=== PATIENT | male | born 1950 | race African-American/Black ===

== ENCOUNTER 2016-03-30 11:47 | Outpatient (RCR) | payer MEDICARE, OTHER ==
[~2016-03-30] VITALS: Ht 175.3 cm; Wt 81.6 kg
[~2016-03-30 11:47] MED LIST: AMLODIPINE-ATO1 EACH ORAL; CLINDAMYCIN HC300 MG ORAL; GABAPENTIN300 MG ORAL; GLUCOPHAGE1000 MG ORAL; GLYBURIDE5 MG PO; IRON325 M1 PO; JANUVIA50 MG ORAL; KEFLEX500 MG ORAL; LEVEMIR FL100 UNIT/1 SUBQ; METOCLOPRAM5 MG/5 M3 PO; OMEPRAZOLE40 M1 ORAL; SIMVASTATIN10 MG ORAL; STARLIX60 MG ORAL; TAMSULOSIN HCL0.4 MG ORAL
[2016-04-07] MEDS ORDERED: Silver Nitrate Stick TOPIC ONE (17:15)
[2016-04-20] MEDS ORDERED: ZITHROMAX250 MG ORAL (15:15)
[2016-04-20] MEDS ORDERED: GUAIFENESIN1200 MG PO (15:15)
[2016-04-20] MEDS ORDERED: TESSALON PERLE100 MG ORAL (15:15)
[2016-04-20] MEDS ORDERED: CLARITIN10 MG ORAL (15:15)
== END 2016-04-25 | disposition home or self-care (01) ==
LOC: WCC 11:47
DX: L97.812 Non-pressure chronic ulcer of other part of right lower leg with fat layer exposed (principal); E11.9 Type 2 diabetes mellitus without complications; I10 Essential (primary) hypertension; H54.41 Blindness, right eye, normal vision left eye
CPT/HCPCS: 11042; 11045; 82962

== ENCOUNTER 2016-04-20 13:08 | Emergency (ER) | payer MEDICARE, OTHER ==
[~2016-04-20] VITALS: Ht 175.3 cm; Wt 77.1 kg
[2016-04-20 13:41] VITALS: BP 131/57
--- NOTE | 2016-04-20 14:16 | Emergency Room Report ---
History of Present Illness General Chief Complaint: Upper Respiratory Illness Source: Patient (Jennifer Nguyen) Present Illness HPI 65-year-old male presents emergency department complaining of productive cough times one week denies fevers reports chills. Patient's history of asthma in addition to high blood pressure. Patient also states that for approximately one year he has noticed moderate increase in phlegm/mucous production and nasal drainage. Patient denies immunocompromise denies recent upper respiratory illness or ill contacts denies recent travels. Patient denies neck stiffness neck pain or headache. Denies CP, Palpitations, LOC, AMS, dizziness, Changes in Vision, Sensation, paresthesias, or a sudden severe headache. (Jennifer Nguyen) Allergies: Coded Allergies: No Known Allergies (Unverified , 05/27/15) Patient History Past Medical History: see triage record Past Surgical History: none Pertinent Family History: none Immunizations: UTD Reviewed Nursing Documentation: PMH: Agreed, PSxH: Agreed (Jennifer Nguyen) Nursing Documentation-PMH Past Medical History: No History, Except For Hx Hypertension: Yes Hx Diabetes: Yes - right BKA Hx Cancer: No Hx Gastrointestinal Problems: No Hx Weakness: Yes (Jennifer Nguyen) Review of Systems All Other Systems: negative except mentioned in HPI (Jennifer Nguyen) Physical Exam Vital Signs Date Time Temp Pulse Resp B/P Pulse Ox O2 Delivery O2 Flow Rate FiO2 04/20/16 13:25 98.6 72 16 131/57 97 Room Air Sp02 EP Interpretation: reviewed, normal General Appearance: no apparent distress, alert, GCS 15, non-toxic Head: normocephalic, atraumatic Eyes: bilateral eye PERRL, bilateral eye normal inspection ENT: hearing grossly normal, normal pharynx, no angioedema, normal voice, TMs + canals normal, uvula midline, moist mucus membranes, nasal congestion - clear nasal rhinorrhea bilaterally Neck: full range of motion, no meningismus, no bony tend, supple/symm/no masses Respiratory: chest non-tender, lungs clear, normal breath sounds, no rhonchi, no respiratory distress, no retraction, no accessory muscle use, speaking full sentences Cardiovascular #1: regular rate, rhythm, no edema Gastrointestinal: non tender, soft, no guarding, no rebound Rectal: deferred Genitourinary: normal inspection, no CVA tenderness Musculoskeletal: back normal, gait/station normal, normal range of motion, non- tender, no calf tenderness Neurologic: alert, oriented x3, responsive, motor strength/tone normal, sensory intact, speech normal Psychiatric: judgement/insight normal, memory normal, mood/affect normal, no suicidal/homicidal ideation Reflexes: 4+ bicep (R), 4+ bicep (L), 4+ tricep (R), 4+ tricep (L), 4+ knee (R) , 4+ knee (L) Skin: normal color, no rash, warm/dry, well hydrated Lymphatic: no adenopathy (Jennifer Nguyen) Medical Decision Making PA Attestation Dr. Catherine is my supervising Physician whom patient management has been discussed with. (Jennifer Nguyen) Diagnostic Impression: Primary Impression: Atypical pneumonia ER Course Pt. presents to the ED c/o productive cough times one week denies fevers reports chills. Patient's history of asthma in addition to high blood pressure. Patient also states that for approximately one year he has noticed moderate increase in phlegm/mucous production and nasal drainage. Ddx considered but are not limited to URI, pneumonia, PE, strep pharyngitis, meningitis. Vital signs: Pt. is afebrile, the remaining VS are WNL H&PE are most consistent with URI- no meningeal signs, oropharynx is not involved, no evidence of bacterial infection at this time. Wet cough is observed several times during the PE. ORDERS: -CXR: Poor inspiration,enlarged heart, no acute pulmonary process- per official radiology report. ED INTERVENTIONS: None required at this time. --PT. EDUCATION: Discussed antibiotic resistance with inappropriate prescribing of antibiotics for viral illnesses. Discussed signs and symptoms to indicate viral illness versus bacterial illness. DISCHARGE: At this time pt. is stable for d/c to home. Will provide printed patient care instructions, and any necessary prescriptions. Care plan and follow up instructions have been discussed with the patient prior to discharge. (Jennifer Nguyen) ER Course Scribe documentation reviewed by me and is accurate. (Justus Dietrich M.D.) Last Vital Signs Date Time Temp Pulse Resp B/P Pulse Ox O2 Delivery O2 Flow Rate FiO2 1/26/17 13:41 72 16 Room Air 04/20/16 13:41 98.6 131/57 97 (Jennifer Nguyen) Disposition: HOME, SELF-CARE Condition: Stable Scripts Benzonatate* (TESSALON PERLE*) 100 Mg Capsule 100 MG ORAL THREE TIMES A DAY for 14 Days, #30 PERLE Prov: Jennifer Nguyen 04/20/16 Guaifenesin (Guaifenesin) 1,200 Mg Tab.er.12h 1200 MG PO BID for 7 Days, #28 TAB Prov: Jennifer Nguyen 04/20/16 Loratadine (CLARITIN) 10 Mg Tablet 10 MG ORAL DAILY, #30 TAB Prov: Jennifer Nguyen 04/20/16 Azithromycin* (ZITHROMAX*) 250 Mg Tablet 250 MG ORAL DAILY, #6 TAB 0 Refills Take two tables once daily for 1 day, then one tablet once daily for 4 days. Prov: Jennifer Nguyen 04/20/16 Referrals: Richar Cavanaugh MD (PCP) Patient Instructions: Upper Respiratory Infection, Adult Additional Instructions: Take medications as directed. Follow up with PCP in 3-5 days Return sooner to ED if new symptoms occur, or current symptoms become worse. Do not drink alcohol, drive, or operate heavy machinery while taking Cough Syrup as this may cause drowsiness. Jennifer Nguyen Apr 20, 2016 14:16 Justus Dietrich M.D. Apr 21, 2016 08:09
[2016-04-20] MEDS ORDERED: GUAIFENESIN1200 MG PO (15:15)
[2016-04-20] MEDS ORDERED: ZITHROMAX250 MG ORAL (15:15)
[2016-04-20] MEDS ORDERED: TESSALON PERLE100 MG ORAL (15:15)
[2016-04-20] MEDS ORDERED: CLARITIN10 MG ORAL (15:15)
[2016-04-20 15:30] VITALS: BP 131/57
--- NOTE | 2016-04-20 17:30 | Diagnostic Imaging Report ---
Indication: COUGH Technique: One view of the chest Comparison: 07/30/2012 Findings: Inspiration is suboptimal. The heart is enlarged, more so than on the prior exam. No other significant interim change Impression: Mild cardiomegaly. No acute process
== END 2016-04-20 15:49 | disposition home or self-care (01) ==
LOC: EMR 13:57
DX: J18.9 Pneumonia, unspecified organism (principal); I10 Essential (primary) hypertension; E11.9 Type 2 diabetes mellitus without complications; J45.909 Unspecified asthma, uncomplicated; Z89.511 Acquired absence of right leg below knee
CPT/HCPCS: 71010; 99284

== ENCOUNTER 2016-04-27 11:39 | Outpatient (RCR) | payer MEDICARE, OTHER ==
[~2016-04-27 11:39] MED LIST changes: +CLARITIN10 MG ORAL; +GUAIFENESIN1200 MG PO; +TESSALON PERLE100 MG ORAL; +ZITHROMAX250 MG ORAL
== END 2016-05-23 | disposition home or self-care (01) ==
LOC: WCC 11:39
DX: L97.812 Non-pressure chronic ulcer of other part of right lower leg with fat layer exposed (principal); Z89.511 Acquired absence of right leg below knee; Z99.3 Dependence on wheelchair
CPT/HCPCS: 11042; 11043; 11045; 15271; Q4133

== ENCOUNTER 2016-05-25 11:32 | Outpatient (RCR) | payer MEDICARE, OTHER ==
[~2016-05-25] VITALS: Ht 175.3 cm; Wt 81.6 kg
[2016-06-02] MEDS ORDERED: Silver Nitrate Stick TOPIC ONE (16:45)
[2016-06-14] MEDS ORDERED: NITROFURANTOIN100 M2 ORAL (16:18)
[2016-06-17] MEDS ORDERED: BACTRIM DS TAB1 EAC1 ORAL (21:44)
== END 2016-06-23 | disposition home or self-care (01) ==
LOC: WCC 11:32
DX: L89.890 Pressure ulcer of other site, unstageable (principal); E11.9 Type 2 diabetes mellitus without complications; I10 Essential (primary) hypertension; H54.41 Blindness, right eye, normal vision left eye
CPT/HCPCS: 11042; 11043

== ENCOUNTER 2016-06-14 14:09 | Emergency (ER) | payer MEDICARE, OTHER ==
[~2016-06-14] VITALS: Ht 175.3 cm; Wt 77.1 kg
[2016-06-14 14:45] VITALS: BP 142/65
[2016-06-14 15:30] LABS: APPEARANCE,URINE CLEAR; KETONES,URINE NEGATIVE (NEGATIVE); LEUKOCYTE ESTERASE ,URINE 3+ (NEGATIVE); NITRITE,URINE NEGATIVE (NEGATIVE); PH,URINE 6.5 (4.5-8.0); PROTEIN,URINE 3+ (NEGATIVE); UROBILINOGEN,URINE NORMAL MG/DL (0.0-1.0)
[2016-06-14 16:08] LABS: AMORPHOUS SEDIMENT,UR FEW /LPF; BACTERIA,URINE MANY /HPF; WBC,URINE 15-20 /HPF (0 - 0)
[2016-06-14] MEDS ORDERED: NITROFURANTOIN100 M2 ORAL (16:18)
[2016-06-14 16:33] VITALS: BP 138/67
[2016-06-14 16:34] VITALS: BP 138/67
--- NOTE | 2016-06-14 17:06 | Emergency Room Report ---
History of Present Illness General Chief Complaint: Male Urogenital Problems Source: Patient Present Illness [facility] The patient is a 65-year-old male presenting with dysuria and increased urinary frequency for the past week. The patient denies any other symptoms including nausea, vomiting, fever, chills, abdominal pain, flank pain, penile discharge Allergies: Coded Allergies: No Known Allergies (Unverified , 05/27/15) Patient History Past Medical History: see triage record Pertinent Family History: none Reviewed Nursing Documentation: PMH: Agreed, PSxH: Agreed Nursing Documentation-PMH Past Medical History: No History, Except For Hx Hypertension: Yes Hx Diabetes: Yes - right BKA Hx Cancer: No Hx Gastrointestinal Problems: No Hx Weakness: Yes Review of Systems All Other Systems: negative except mentioned in HPI Physical Exam Vital Signs Date Time Temp Pulse Resp B/P Pulse Ox O2 Delivery O2 Flow Rate FiO2 06/14/16 14:32 98.1 66 16 142/65 99 Room Air Sp02 EP Interpretation: reviewed, normal General Appearance: no apparent distress, alert, GCS 15, non-toxic Head: normocephalic, atraumatic Eyes: bilateral eye PERRL, bilateral eye normal inspection Gastrointestinal: normal bowel sounds, non tender, soft, non-distended, no guarding, no rebound Musculoskeletal: back normal, gait/station normal, normal range of motion, non- tender Neurologic: alert, oriented x3, responsive, motor strength/tone normal, sensory intact, speech normal Psychiatric: judgement/insight normal, memory normal, mood/affect normal, no suicidal/homicidal ideation Skin: normal color, no rash, warm/dry, well hydrated Lymphatic: no adenopathy Medical Decision Making PA Attestation Dr. Billingsley is my supervising physician. Patient management was discussed with my supervising physician Diagnostic Impression: Primary Impression: Urinary tract infection ER Course The patient is a 65-year-old male presenting with dysuria and increased urinary frequency for the past week Differential diagnosis considered but not limited to: UTI, pyelonephritis, urethritis PE: Vitals WNL. NAD. Abdomen: Normal appearance. Non distended. No ecchymosis. Normal BS. Non TTP. No McBurney point tenderness. No guarding. No CVA tenderness Urinalysis is consistent with a urinary tract infection. The patient is informed of these results as well as the occult blood. The patient will have to followup with PMD and urologist. The patient is placed on antibiotics and will be discharged home. ER precautions are given Laboratory Tests Test 06/14/16 15:20 Urine Color Pale yellow Urine Appearance Clear Urine pH 6.5 (4.5-8.0) Urine Specific [place] 1.015 (1.005-1.035) Urine Protein 3+ (NEGATIVE) H Urine Glucose (UA) 2+ (NEGATIVE) H Urine Ketones Negative (NEGATIVE) Urine Occult Blood 3+ (NEGATIVE) H Urine Nitrite Negative (NEGATIVE) Urine Bilirubin Negative (NEGATIVE) Urine Urobilinogen Normal MG/DL (0.0-1.0) Urine Leukocyte Esterase 3+ (NEGATIVE) H Urine RBC 10-15 /HPF (0 - 0) H Urine WBC 15-20 /HPF (0 - 0) H Urine Squamous Epithelial Cells None /LPF (NONE/OCC) Urine Amorphous Sediment Few /LPF (NONE) H Urine Bacteria Many /HPF (NONE) H Lab Results Impression Urinalysis is consistent with urinary tract infection. 3+ occult blood is also seen. Last Vital Signs Date Time Temp Pulse Resp B/P Pulse Ox O2 Delivery O2 Flow Rate FiO2 06/14/16 16:34 98.0 72 15 138/67 99 Room Air Status: improved Disposition: HOME, SELF-CARE Condition: Improved Scripts Nitrofurantoin Monohyd/M-Cryst* (MACROBID 100 MG*) 100 Mg Capsule 100 MG ORAL EVERY 12 HOURS, #20 CAP Prov: REBECA HYDE 06/14/16 Patient Instructions: Urinary Tract Infection Additional Instructions: I discussed my findings with the patient. All questions and concerns have been answered. Treatment and medication compliance have been addressed. I advised the patient that they need to follow up with PMD in 3-5 days. Return to ED if symptoms worsen, new symptoms arise, or if needed for any reason. Patient verbalized understanding of discharge instructions. REBECA HYDE Jun 14, 2016 17:06
== END 2016-06-14 16:35 | disposition home or self-care (01) ==
LOC: EMR 15:32
DX: N39.0 Urinary tract infection, site not specified (principal); I10 Essential (primary) hypertension; E11.9 Type 2 diabetes mellitus without complications; Z89.511 Acquired absence of right leg below knee
CPT/HCPCS: 81003; 87086; 87181; 99283

== ENCOUNTER 2016-06-29 12:08 | Outpatient (RCR) | payer MEDICARE, OTHER ==
[~2016-06-29] VITALS: Ht 175.3 cm; Wt 81.6 kg
[~2016-06-29 12:08] MED LIST changes: +BACTRIM DS TAB1 EAC1 ORAL; +NITROFURANTOIN100 M2 ORAL
[2016-07-14] MEDS ORDERED: Neosporin Oint 15gm TOPIC ONE (15:45)
== END 2016-07-23 | disposition home or self-care (01) ==
LOC: WCC 12:08
DX: L97.812 Non-pressure chronic ulcer of other part of right lower leg with fat layer exposed (principal); Z89.511 Acquired absence of right leg below knee; Z87.891 Personal history of nicotine dependence; E11.9 Type 2 diabetes mellitus without complications; I10 Essential (primary) hypertension; H54.41 Blindness, right eye, normal vision left eye
CPT/HCPCS: G0463